=== PATIENT | male | born 1965 | race African-American/Black ===

== ENCOUNTER 2016-07-16 16:34 | Inpatient (IN) ==
[2016-07-16] MEDS ORDERED: SODIUM CHLORIDE 0.9% 1,000 ML IV STA (17:21)
--- NOTE | 2016-07-16 17:26 | Emergency Department Note ---
Arrival - Arrival Chief Complaint: Altered Mental Status Stated Complaint: altered mental status/high blood pressure ED Nursing Triage Note: PT FELL OUT AT HOME AND HAD HIGH BP PER . PT IS MOVING SLOW. STATES DID THIS ON 06/24/16 AND WAS JUST TOLD IT WAS HIGH BP PER PEREIRA. PT STATES ABOUT 1400 HE TOOK SOMETHING TO SLEEP AND DRANK TWO BEERS Mode of Arrival: Wheelchair Limitations: Altered Mental Status Source: Family Time Seen by Provider: 07/16/16 17:21 - History of Present Illness HPI Narrative: This 50-year-old black male was found by his son in the front yard by the car, easily aroused but sluggish. The patient per family members purportedly took 2 mg of Xanax with 48 ounces of beer and simply fell asleep in the yard. Because of these questionable circumstances, it should be noted the patient did have an absolute syncopal spell 2 weeks ago due to poorly controlled hypertension. At that time he was evaluated and treated for his blood pressure with subsequent stabilization. However, the states he has been drinking daily since then and has had persistently high blood pressure whenever evaluated at home. Patient is arousable and oriented denying chest pain, shortness of breath, nausea, or vomiting. Currently he is medically stable. Onset (ago): hour(s) (Patient presents 3 hours post incident) Allergies/Adverse Reactions: Allergies Allergy/AdvReac Type Severity Reaction Status Date / Time No Known Allergies Allergy Unverified 07/16/16 16:40 Review of System - Review of System 12 point system: reviewed and no additional remarkable complaints except as stated - Review of System Constitutional: Present: as per HPI Respiratory: Present: as per HPI Cardiovascular: Present: as per HPI Gastrointestinal: Present: as per HPI Neurological: Present: as per HPI Medical,Surgical,& Family Hx - Medical History Cardio: History of: Hypertension Neurology: History of: Cerebrovascular Accident (MILD) Respiratory: History of: Respiratory Problems (LUNG REPAIR) - Social History Smoking Status: Never smoker Frequency of Alcohol Use: Occasionally Type of Drug Use: None Exam Physical Examination: GENERAL: Well developed, well nourished black male in no acute distress. HEENT: Normocephalic. No trauma. Moist mucous membranes. EOMI. PERRLA. Bloodshot eyes ENT NML NECK: Supple. No adenopathy. CARDIAC: Regular. No murmurs. Heart rate 100 CHEST: Clear to auscultation. No respiratory distress. O2 sat 97% ABDOMEN: Soft. Nontender. Active bowel sounds. EXTREMITIES: No trauma. Normal ROM. No pedal edema. SKIN: No diaphoresis. No rash. NEURO: Alert. Oriented 3 although lethargic. Motor, sensory, vibratory intact. No focal deficits. Vital Signs: Vital Signs Temperature 97.6 F 07/16/16 18:28 Pulse Rate 90 07/16/16 18:28 Respiratory Rate 16 07/16/16 18:28 Blood Pressure 137/91 07/16/16 18:28 O2 Sat by Pulse Oximetry 97 07/16/16 16:37 Course - Reevaluation(s) Reevaluation #1: Discussed with patient and family the need for hospitalization given these recurrent syncopal episodes and finding of of recent new lacunar infarcts on CT. - Consultations Consultation #1: Discussed with hospitalist service who will admit for further evaluation treatment. Results - Labs CBC & BMP: 07/16/16 18:10 07/16/16 18:10 Labs: I reviewed the laboratory and noted its gross normalcy including cardiacs. On toxicology I did note elevated blood alcohol of 55. - Impressions EKG: Sinus rhythm at 94. Normal MT interval and QRS duration. Normal ST segments. Normal EKG. - Diagnostic Findings Procedure: Chest x-ray: image reviewed by me, report reviewed by me (Status post sternotomy otherwise no acute disease.), CT: image reviewed by me, report reviewed by me (Head: Subacute basilar and thalamic infarcts) Disposition Clinical Impression: Lacunar infarct subacute, Hypertension Case discussed with: patient's family Disposition: Still a Patient Condition: Guarded Time of Disposition: 19:53
--- NOTE | 2016-07-16 18:12 | XRay Report ---
Portable chest. Indication: Altered mental status. Comparison: February 26, 2009. The heart is probably upper limits of normal in size. Post median sternotomy. The film was obtained in expiration. The pulmonary vasculature is normal. No consolidation or pneumothorax. Impression: Expiratory chest. PROCEDURE INTERPRETED AT [facility] DEPARTMENT OF RADIOLOGY Final Report Signed by: Dr. Sondra Up
--- NOTE | 2016-07-16 18:14 | CT Report ---
CT of the head without contrast. Indication: Altered mental status. Comparison: October 01, 2012. This calcific plaque present within the intracranial internal carotid arteries. The ventricles are normal in size and configuration. There is no mass effect, midline shift, or area of hemorrhage. No cortical infarcts are seen at this time. Lacunar infarcts are noted within the left basal ganglia and thalamus. The calvarium is intact. The included paranasal sinuses and the mastoid air cells are clear. Impression: Lacunar infarcts are noted on the left, in the basal ganglia and the thalamus. These are more prominent than seen on the previous study. The CT exam was performed using one or more of the following dose reduction techniques: Automated exposure control, adjustment of the mA and/or kV according to patient size, or use of iterative reconstruction technique. PROCEDURE INTERPRETED AT [facility] DEPARTMENT OF RADIOLOGY Final Report Signed by: Dr. Sondra Up
[2016-07-16 18:18] LABS: Basophils # 0.1 10*3/uL (0.0-0.2); Basophils % 0.9 % (0.0-0.8); Eosinophils # 0.1 10*3/uL (0.0-0.87); Eosinophils % 2.4 % (0.00-10.9); Hematocrit 44.4 VOL% (42.0-52.0); Hemoglobin 14.9 GM/DL (14.0-18.0); Immature Granulocytes % 0.2 %; Immature Granulocytes Absolute 0.01 #; Lymphocytes # 2.3 10*3/uL (1.4-4.0); Lymphocytes % 40.3 % (21.2-54.2); Mean Corpuscular HGB Conc 33.6 GM/DL (32-36); Mean Corpuscular Hemoglobin 29 PG (27-34); Mean Corpuscular Volume 87.4 FL (87-102); Monocytes # 0.5 10*3/uL (0.11-0.8); Monocytes % 8.8 % (1.7-12.7); Neutrophils # 2.8 10*3/uL (1.4-7.4); Neutrophils % 47.4 % (38.7-73.9); Platelet Count 313 T/CUMM (130-400); Red Blood Count 5.08 MC/CUMM (3.8-5.5); Red Cell Distribution Width 14.5 % (9.3-17.3); White Blood Count 5.8 T/CUMM (4-12)
[2016-07-16 18:27] LABS: PT Patient Result 10.8 SECS; Partial Thromboplastin Time 26.4 SECS (0-40)
[2016-07-16 18:54] LABS: Albumin 3.8 G/DL (3.4-5.0); Bilirubin,Total 0.8 MG/DL (0.2-1.0); Osmolality,Calculated 278.3 MOS/KG (273-304); Potassium 3.6 MMOL/L (3.5-5.1); Total Protein 7.5 G/DL (6.4-8.3)
--- NOTE | 2016-07-16 19:37 | Hospitalist History & Physical ---
Assessment and Plan (1) Altered mental status Status: Acute Assessment and plan: Think this is a combination of his alcohol intake and his Xanax use. I think these were recreational use isn't deathly not an overdose. We will maintain the hospital observe his mental status on telemetry. He will get neuro checks Current Visit: Yes (2) Recreational drug use Status: Acute Assessment and plan: Patienttook xanax which I think sounds like recreational but he said for anxiety no suicidal ideations or thoughts Current Visit: Yes (3) Alcohol intoxication Status: Acute Assessment and plan: drinking alcohol the day during the day and was found a little bit with altered mental status and had a call level 55, admit hydrate give thiamine watch Current Visit: Yes History of Present Illness Chief complaint: altered mental status History of present illness: Mr. Denton is a 50 year old male last son the front yard by the car easily arousable but sluggish. The patient had drank what was said to be 48 ounces of beer and 2 Xanax bars which is 4 mg. He does admit to taking the medicine study due because he was anxious denies any suicidal ideations denies any chest pain or chest tightness did not black out at that time he's able to answer questions now but is a little bit groggy he denies any fever or chills. He seems to be getting less sleepy as time goes on Workup in the emergency room shows a chest x-ray that was reviewed by me and normal, CBC CMP unremarkable PTT normal serum alcohol level 55. No ekg available Patient was admitted to the hospital from the emergency department patient admission Allergies Allergy/AdvReac Type Severity Reaction Status Date / Time No Known Allergies Allergy Unverified 07/16/16 16:40 Medical,Surgical,& Family Hx - Medical History Cardio: History of: Hypertension Neurology: History of: Cerebrovascular Accident (MILD) Respiratory: History of: Respiratory Problems (LUNG REPAIR) - Surgical History Cardiac Surgeries: Patient Denies: Cardiac Catheterization Orthopedic Surgeries: Patient denies;: Orthopedic Surgery - Family History Family History: Denies;: Family Cancer, Family Diabetes, Family Heart Disease - Social History Smoking Status: Never smoker Frequency of Alcohol Use: Occasionally Type of Drug Use: None Review of systems: Constitutional: No fatigue or fever Eyes: No loss of vision or blurred vision Ears: No decreased hearing no ear pain Mouth no lip swelling or sore throat Cardiovascular no chest pain no claudication Respiratory no cough or shortness of breath GI no abdominal pain or bloating or bleeding : No urinary frequency or hesitancy musculoskeletal: No Arthralgias or back pain Psychiatric: Confusion memory loss Endocrine: No polydipsia or polyuria Hematology: No easy bleeding or bruising 12 point review of systems otherwise unremarkable Exam - Constitutional Vitals: Period Temp Pulse Resp BP Sys/Moya Pulse Ox Last 24 Hr 97.6 F-97.6 F 90-100 16-18 118-137/86-91 97 Exam: Constitutional: Patient in no apparent distress. Overweight easily arousable Eyes: Conjunctivae and lids are normal Pupils equal round react to light and accommodation irises are normal HEENT: External ears and nose without lesions masses or scarring Oropharynx without erythema exudates or thrush Neck is supple without masses no jugular venous distention Lungs: Lungs are clear to auscultation and resonant percussion Cardiovascular: Heart auscultation regular rate and rhythm without murmur rub or gallop PMI in the midclavicular line by palpation carotid arteries 2+ without bruits bowel abdomen: Bowel sounds normoactive no masses no rebound or regular tenderness no organomegaly Lymphatic: No anterior posterior cervical or axillary adenopathy Musculoskeletal: No active synovitis no malalignment of the joints good range of motion of upper and lower extremities Skin : normal to inspection and palpation Neurologic: Cranial nerves II through XII intact motor sensory intact DTRs 2+ negative cerebellar signs Psychiatric: Oriented to person place and time normal memory normal mood and affect normal judgment Results - Labs CBC & BMP: 07/16/16 18:10 07/16/16 18:10
--- NOTE | 2016-07-16 19:52 | EKG Report ---
Stationary ECG Study [facility] ER Test Date: 07/16/2016 7:51:24 PM Pat Name: TIFFANY GILBERT Department: Room: Gender: Manager Information: : 1965 Requested by: Robin Anderson Order Number: [id number] Reading MD: PRECIOUS GARCIA Intervals [place] Rate: 94 P: 62 [place]: 164 QRS: 43 QRSD: 96 T: 70 QT: 367 QTc: 419 Interpretive Statements SINUS RHYTHM Electronically Signed On 07-17-16 07:28:32 CDT by PRECIOUS GARCIA [email or web address]
[2016-07-16] MEDS: SODIUM CHLORIDE 0.45% 1,000 ML IV SCH (22:14)
[2016-07-17 00:29] LABS: Apearance,Urine CLEAR (Clear); Bilirubin,Urine Negative (Negative); Blood, Urine Negative (Negative); Glucose,Urine (UA) >=500 mg/dL (Negative); Ketones,Urine Negative (Negative); Nitrite,Urine Negative (Negative); Protein,Urine Negative; Urine Color Straw (Yellow); Urine Specific Gravity 1.001 (1.001-1.035); Urine Urobilinogen < 2.0 EU/DL (0.2-1.0)
[2016-07-17 00:47] LABS: Barbiturates Screen,Urine Negative (Negative); Benzodiazepines Screen,Urine Positive (Negative); Cannabinoid Screen,Urine Negative (Negative); Opiate Screen,Urine Negative (Negative); Phencyclidine Screen,Urine Negative (Negative)
[2016-07-17] MEDS ORDERED: LABETALOL 20 MG/4 ML SYRINGE IV PRN (06:33)
[2016-07-17 06:41] LABS: Basophils % 0.5 % (0.0-0.8); Eosinophils # 0.2 10*3/uL (0.0-0.87); Eosinophils % 3.3 % (0.00-10.9); Hematocrit 43.1 VOL% (42.0-52.0); Hemoglobin 14.3 GM/DL (14.0-18.0); Immature Granulocytes % 0.2 %; Immature Granulocytes Absolute 0.01 #; Lymphocytes # 1.7 10*3/uL (1.4-4.0); Lymphocytes % 28.9 % (21.2-54.2); Mean Corpuscular HGB Conc 33.2 GM/DL (32-36); Mean Corpuscular Hemoglobin 29 PG (27-34); Mean Corpuscular Volume 87.8 FL (87-102); Mean Platelet Volume 9.5 FL (9.6-12.0); Monocytes # 0.7 10*3/uL (0.11-0.8); Monocytes % 11.7 % (1.7-12.7); Neutrophils # 3.2 10*3/uL (1.4-7.4); Neutrophils % 55.4 % (38.7-73.9); Platelet Count 297 T/CUMM (130-400); Red Blood Count 4.91 MC/CUMM (3.8-5.5); Red Cell Distribution Width 14.6 % (9.3-17.3); White Blood Count 5.7 T/CUMM (4-12)
[2016-07-17 07:04] LABS: Calcium 8.6 MG/DL (8.5-10.1); Osmolality,Calculated 280.4 MOS/KG (273-304); Potassium 3.6 MMOL/L (3.5-5.1); Risk Ratio 2.97; Thyroid Stimulating Hormone 1.4 uIU/ml (0.358-3.74); VLDL CHOLESTEROL 18.2 MG/DL
[2016-07-17] MEDS: SODIUM CHLORIDE 0.45% 1,000 ML IV SCH (07:35)
[2016-07-17] MEDS ORDERED: MULTIVITAMIN (BEROCCA) TABLET PO SCH (09:00)
[2016-07-17] MEDS ORDERED: THIAMINE 100 MG TABLET PO SCH (09:00)
[2016-07-17] MEDS ORDERED: amLODIPine 5 MG TABLET PO SCH (10:30)
[2016-07-17] MEDS ORDERED: CARVEDILOL 12.5 MG TABLET PO SCH (10:30)
[2016-07-17 11:54] VITALS: BP 144/96
--- NOTE | 2016-07-17 12:17 | Discharge Summary ---
Hospital Course - Hospital Course Hospital Course: Mr. Denton is a 50 year old male found down in the front yard by the car. The patient had drank a 48 ounces beer and taken 2 Xanax bars which is 4 mg. He has refused help from [facility] and reports has attended AA in the past but is not interested in attending. His blood pressure was elevated on admission and through the night but improved on coreg and norvasc. Not sure of his compliance level. - Time spent with patient Time with patient DS: Less than 30 minutes (25 min) Discharge Plan - Discharge Data Disposition: Disch To Home/Self Care Condition at Discharge: Stable Discharge Diet: heart healthy Activity: resume usual activities as tolerated Hygiene: no restrictions Weight Bearing at Discharge: full weight bearing Driving: other (no driving while drinking alcohol or taking sedatives) - Discharge Medications New Multivitamin (Berocca) [Berocca] 1 tablet PO DAILY tablet Thiamine Tab [Vitamin B1 Tab] 100 mg PO DAILY tablet Carvedilol [Coreg] 12.5 mg PO BID #60 tablet Folic Acid Tab 1 mg PO DAILY #30 tablet Continue amLODIPine [Norvasc] 5 mg PO DAILY #30 tablet - Follow Up or Referral Follow Up: dr alfred [Other] - 1 Week (blood pressure ) - Forms/Instructions Additional Discharge Instructions: recommend AA Exam - Constitutional Vitals: Period Temp Pulse Resp BP Sys/Moya Pulse Ox Last 24 Hr 97.9 F-98.2 F 86-113 20-21 115-197/85-122 97-100 General appearance: normal weight, no acute distress - Respiratory Respiratory exam: Present: clear to auscultation bilaterally. Absent: rhonchi, wheezes - Cardiovascular Cardiovascular exam: Present: regular rate and rhythm. Absent: systolic murmur - GI/Abdominal GI/Abdominal exam: Present: normal bowel sounds, soft. Absent: tenderness Discharge Results Procedures and tests throughout hospitalization: Pending Orders 07/18/16 04:00 Comp Blood Count Auto Diff IN AM 07/19/16 04:00 Comp Blood Count Auto Diff IN AM Labs on day of discharge: Labs from last 24 hours 07/17/16 07/17/16 07/16/16 06:16 06:16 23:00 WBC 5.7 RBC 4.91 Hgb 14.3 Hct 43.1 MCV 87.8 MCH 29 MCHC 33.2 RDW 14.6 Plt Count 297 MPV 9.5 L Neut % (Auto) 55.4 Lymph % (Auto) 28.9 Simpson % (Auto) 11.7 Eos % (Auto) 3.3 Baso % (Auto) 0.5 Neut # (Auto) 3.2 Lymph # (Auto) 1.7 Simpson # (Auto) 0.7 Eos # (Auto) 0.2 Baso # (Auto) 0.0 Immature Gran % 0.2 Nucleated RBC % 0.0 Immature Gran # 0.01 Nucleated RBCs # 0.00 Sodium 140 Potassium 3.6 Chloride 104 Carbon Dioxide 26 Anion Gap 13.6 BUN 12 Creatinine 1.00 GFR Calculation 113 BUN/Creatinine Ratio 12.00 Glucose 138 H Calculated Osmolality 280.4 Calcium 8.6 Triglycerides 91 Cholesterol 196 LDL Cholesterol 129.0 VLDL Cholesterol 18.2 HDL Cholesterol 66 H Heart Disease Risk Ratio 2.97 TSH 3rd Generation 1.400 Urine Color Straw Urine Appearance Clear Urine pH 6.0 Ur Specific [place] 1.001 Urine Protein Negative Urine Glucose (UA) >=500 Urine Ketones Negative Urine Blood Negative Urine Nitrate Negative Urine Bilirubin Negative Urine Urobilinogen < 2.0 H Urine Leukocytes Negative Ur Culture Indicated? Not indicated Urine Opiates Screen Ur Barbiturates Screen Ur Phencyclidine Scrn U Amphetamine/Methamph U Benzodiazepines Scrn U Cocaine Metab Screen U Cannabinoids Screen 07/16/16 23:00 WBC RBC Hgb Hct MCV MCH MCHC RDW Plt Count MPV Neut % (Auto) Lymph % (Auto) Simpson % (Auto) Eos % (Auto) Baso % (Auto) Neut # (Auto) Lymph # (Auto) Simpson # (Auto) Eos # (Auto) Baso # (Auto) Immature Gran % Nucleated RBC % Immature Gran # Nucleated RBCs # Sodium Potassium Chloride Carbon Dioxide Anion Gap BUN Creatinine GFR Calculation BUN/Creatinine Ratio Glucose Calculated Osmolality Calcium Triglycerides Cholesterol LDL Cholesterol VLDL Cholesterol HDL Cholesterol Heart Disease Risk Ratio TSH 3rd Generation Urine Color Urine Appearance Urine pH Ur Specific [place] Urine Protein Urine Glucose (UA) Urine Ketones Urine Blood Urine Nitrate Urine Bilirubin Urine Urobilinogen Urine Leukocytes Ur Culture Indicated? Urine Opiates Screen Negative Ur Barbiturates Screen Negative Ur Phencyclidine Scrn Negative U Amphetamine/Methamph Negative U Benzodiazepines Scrn Positive H U Cocaine Metab Screen Negative U Cannabinoids Screen Negative DS: Provider Date of admission: 07/16/16 19:44 Primary care physician: . No PCP Attending physician on admission: Domenica Carpenter MD Consults: 07/17/16 10:23 Consult to Case Mgmt/Social Srvs [CONS] Routine Reason for Case Mgmt/Social Srvs: Rehab Discharging clinician: Domenica Carpenter MD
== END 2016-07-17 14:05 | disposition home or self-care (01) | DRG 918 ==
LOC: N.ED 16:34 → N.EDINP 19:44 → N.TELEN 20:26
PROVIDERS: ADMIT Internal Medicine; ATTEND Internal Medicine

== ENCOUNTER 2016-09-06 13:29 | Inpatient (IN) ==
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
[2016-09-06] MEDS ORDERED: DIPH/TET/ACEL PERT BOOSTER VACCINE 0.5 ML VIAL IM ONE ×2 (14:13→14:17)
[2016-09-06] MEDS ORDERED: ONDANSETRON 4 MG/2 ML VIAL IV STA (14:13)
[2016-09-06] MEDS ORDERED: LACTATED RINGERS 1,000 ML IV STA (14:13)
[2016-09-06] MEDS ORDERED: ceFAZolin 1,000 MG VIAL ONE (14:16)
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
[2016-09-06 14:30] LABS: INR 1.1; PT Patient Result 11.2 SECS
[2016-09-06 14:32] LABS: Apearance,Urine CLEAR (Clear); Bacteria,Urine Occasional /HPF (Few); Bilirubin,Urine Negative (Negative); Blood, Urine Moderate mg/dL (Negative); Glucose,Urine (UA) 50 mg/dL (Negative); Ketones,Urine Negative (Negative); Mucus,Urine Occasional /LPF (Occasional); Nitrite,Urine Negative (Negative); Protein,Urine Negative; RBC,Urine 2 /HPF (0-4); Urine Color Straw (Yellow); Urine Specific Gravity 1.003 (1.001-1.035); Urine Urobilinogen < 2.0 EU/DL (0.2-1.0); WBC,Urine 1 /HPF (0-6)
[2016-09-06 14:32] LABS: Basophils # 0.1 10*3/uL (0.0-0.2); Basophils % 0.4 % (0.0-0.8); Eosinophils % 0.3 % (0.00-10.9); Hematocrit 41.6 VOL% (42.0-52.0); Hemoglobin 14.7 GM/DL (14.0-18.0); Immature Granulocytes % 0.6 %; Immature Granulocytes Absolute 0.08 #; Lymphocytes # 0.9 10*3/uL (1.4-4.0); Lymphocytes % 6.5 % (21.2-54.2); Mean Corpuscular HGB Conc 35.3 GM/DL (32-36); Mean Corpuscular Hemoglobin 30 PG (27-34); Mean Corpuscular Volume 85.6 FL (87-102); Mean Platelet Volume 9.9 FL (9.6-12.0); Monocytes # 0.5 10*3/uL (0.11-0.8); Monocytes % 3.8 % (1.7-12.7); Neutrophils # 12.2 10*3/uL (1.4-7.4); Neutrophils % 88.4 % (38.7-73.9); Platelet Count 421 T/CUMM (130-400); Red Blood Count 4.86 MC/CUMM (3.8-5.5); Red Cell Distribution Width 14.9 % (9.3-17.3); White Blood Count 13.8 T/CUMM (4-12)
[2016-09-06 14:35] LABS: Albumin 3.6 G/DL (3.4-5.0); Bilirubin,Total 0.6 MG/DL (0.2-1.0); Calcium 8.6 MG/DL (8.5-10.1); Total Protein 6.8 G/DL (6.4-8.3)
[2016-09-06 14:46] LABS: Barbiturates Screen,Urine Negative (Negative); Benzodiazepines Screen,Urine Negative (Negative); Cannabinoid Screen,Urine Negative (Negative); Opiate Screen,Urine Negative (Negative); Phencyclidine Screen,Urine Negative (Negative)
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
[2016-09-06] MEDS ORDERED: LORazepam 2 MG/1 ML VIAL ONE (15:49)
[2016-09-06] MEDS ORDERED: LORazepam 2 MG/1 ML VIAL IV STA (15:57)
[2016-09-06] MEDS ORDERED: HALOPERIDOL 5 MG/ML AMP IV STA (15:57)
[2016-09-06] MEDS ORDERED: ONDANSETRON 4 MG/2 ML VIAL IV PRN (16:23)
[2016-09-06] MEDS ORDERED: MORPHINE 2 MG/1 ML SYRINGE IV PRN (16:23)
[2016-09-06] MEDS ORDERED: ALBUTEROL/IPRATROPIUM 3 ML NEB RESP TX PRN (16:23)
[2016-09-06] MEDS ORDERED: ACETAMINOPHEN 325 MG TABLET PO PRN (16:23)
[2016-09-06] MEDS: SODIUM CHLORIDE 0.9% 1,000 ML IV SCH (17:02)
--- NOTE | 2016-09-06 17:08 | ECHO Report ---
BertinArpan Exam Date: 09/06/2016 13:59 Referring Physician: Technologist: Cari Meza RDCS Age: 51 Ht (in): 66 Wt (lb): 170 Gender: M Exam Location: [facility] Echo use, Schizophrenia, Suicide attempt, Essential (primary) hypertension BP: 163 / 106 HR: Rhythm: Sinus Technical Quality: Fair IMPRESSIONS EF 65 %. Grade I/IV diastolic dysfunction (abnormal relaxation filling pattern), normal to mildly elevated filling pressures. Normal right ventricular size and systolic function. Normal right atrial size. The left atrium is mildly enlarged. Morphologically normal mitral valve. No mitral valve regurgitation. Trileaflet aortic valve. Trace aortic valve regurgitation. Mild tricuspid valve regurgitation. [id number] mmHg. No pleural effusion. Normal size aortic root and proximal ascending aorta. MEASUREMENTS (Male / Female) Normal Values 2D ECHO LV Diastolic Diameter PLAX 3.2 cm 4.2 - 5.9 / 3.9 - 5.3 cm LV Systolic Diameter PLAX 2.1 cm LV Fractional Shortening PLAX 33.9 % IVS Diastolic Thickness 1.4 cm 0.6 - 1.0 / 0.6 - 0.9 cm LVPW Diastolic Thickness 1.4 cm 0.6 - 1.0 / 0.6 - 0.9 cm RV Internal Dim ED PLAX 2.5 cm Aortic Root Diameter 3.8 cm LA Systolic Diameter LX 4.0 cm 3.0 - 4.0 / 2.7 - 3.8 cm DOPPLER TR Peak Velocity 265.0 cm/s TR Peak Gradient 28.1 mmHg FINDINGS Left Ventricle EF 65 %. Grade I/IV diastolic dysfunction (abnormal relaxation filling pattern), normal to mildly elevated filling pressures. Right Ventricle Normal right ventricular size and systolic function. Right Atrium Normal right atrial size. Left Atrium The left atrium is mildly enlarged. Mitral Valve Morphologically normal mitral valve. No mitral valve regurgitation. Aortic Valve Trileaflet aortic valve. Trace aortic valve regurgitation. Tricuspid Valve Morphologically normal tricuspid valve. Mild tricuspid valve regurgitation. [id number] mmHg. Pulmonic Valve Pulmonic valve not well visualized. Pericardium No pleural effusion. No pericardial effusion. Aorta Normal size aortic root and proximal ascending aorta. Brady Maria (Electronically Signed) Final Date: 06 Sep 2016 17:07
[2016-09-06] MEDS: LORazepam 2 MG/1 ML VIAL IV PRN (22:38)
[2016-09-07] MEDS: SODIUM CHLORIDE 0.9% 1,000 ML IV SCH (03:08)
[2016-09-07 05:49] LABS: Basophils % 0.6 % (0.0-0.8); Eosinophils # 0.1 10*3/uL (0.0-0.87); Hematocrit 32.2 VOL% (42.0-52.0); Immature Granulocytes % 0.3 %; Immature Granulocytes Absolute 0.02 #; Lymphocytes # 2.1 10*3/uL (1.4-4.0); Lymphocytes % 29.9 % (21.2-54.2); Mean Corpuscular HGB Conc 35.1 GM/DL (32-36); Mean Corpuscular Hemoglobin 30 PG (27-34); Mean Corpuscular Volume 86.6 FL (87-102); Mean Platelet Volume 9.8 FL (9.6-12.0); Monocytes # 0.9 10*3/uL (0.11-0.8); Monocytes % 13.4 % (1.7-12.7); Neutrophils # 3.7 10*3/uL (1.4-7.4); Neutrophils % 53.8 % (38.7-73.9); Red Cell Distribution Width 15.1 % (9.3-17.3)
[2016-09-07 05:52] LABS: White Blood Count 6.9 T/CUMM (4-12)
[2016-09-07 05:53] LABS: Hemoglobin 11.3 GM/DL (14.0-18.0); Platelet Count 327 T/CUMM (130-400); Red Blood Count 3.72 MC/CUMM (3.8-5.5)
[2016-09-07 06:17] LABS: Albumin 2.8 G/DL (3.4-5.0); Bilirubin,Total 1.2 MG/DL (0.2-1.0); Calcium 8.1 MG/DL (8.5-10.1); Magnesium 1.9 MG/DL (1.8-2.4); Osmolality,Calculated 275.5 MOS/KG (273-304); Potassium 4.1 MMOL/L (3.5-5.1); Total Protein 5.4 G/DL (6.4-8.3)
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
[2016-09-07] MEDS ORDERED: PANTOPRAZOLE 40 MG VIAL IV SCH (09:00)
[2016-09-07] MEDS ORDERED: amLODIPine 5 MG TABLET PO SCH (09:00)
[2016-09-07] MEDS ORDERED: CARVEDILOL 12.5 MG TABLET PO SCH ×2 (09:00→21:00)
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
[2016-09-07] MEDS: LORazepam 2 MG/1 ML VIAL IV PRN ×2 (12:26→15:40)
[2016-09-07] MEDS: HALOPERIDOL 5 MG/ML AMP IV PRN ×2 (12:28→18:29)
[2016-09-07 18:42] VITALS: BP 166/97
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
[2016-09-08] MEDS ORDERED: amLODIPine 5 MG TABLET PO SCH (09:00)
[2016-09-08] MEDS ORDERED: FOLIC ACID 1 MG TABLET PO SCH (09:00)
== END 2016-09-07 20:52 | DRG 605 ==
LOC: EDBD → EDUNIT# → N.ED 13:29 → N.EDINP 14:57 → N.ICU 15:37
PROVIDERS: ADMIT Surgery; ATTEND Surgery

== ENCOUNTER 2017-01-30 02:58 | Inpatient (IN) ==
[2017-01-30] MEDS ORDERED: MIDAZOLAM 10 MG/2 ML VIAL IV STA (04:37)
[2017-01-30 05:36] LABS: Basophils # 0.1 10*3/uL (0.0-0.2); Basophils % 0.4 % (0.0-0.8); Hematocrit 38.3 VOL% (42.0-52.0); Hemoglobin 13.6 GM/DL (14.0-18.0); Immature Granulocytes % 0.2 %; Immature Granulocytes Absolute 0.03 #; Lymphocytes # 0.9 10*3/uL (1.4-4.0); Lymphocytes % 7.3 % (21.2-54.2); Mean Corpuscular HGB Conc 35.5 GM/DL (32-36); Mean Corpuscular Hemoglobin 30 PG (27-34); Mean Platelet Volume 9.4 FL (9.6-12.0); Monocytes # 0.6 10*3/uL (0.11-0.8); Monocytes % 5.1 % (1.7-12.7); Neutrophils # 10.8 10*3/uL (1.4-7.4); Platelet Count 423 T/CUMM (130-400); Red Blood Count 4.56 MC/CUMM (3.8-5.5); Red Cell Distribution Width 17.2 % (9.3-17.3); White Blood Count 12.4 T/CUMM (4-12)
[2017-01-30] MEDS ORDERED: MIDAZOLAM 10 MG/2 ML VIAL ONE (05:41)
--- NOTE | 2017-01-30 06:06 | Order Completion Report ---
See report scanned to EMR
[2017-01-30 06:16] LABS: Barbiturates Screen,Urine Negative (Negative); Benzodiazepines Screen,Urine Negative (Negative); Cannabinoid Screen,Urine Negative (Negative); Opiate Screen,Urine Negative (Negative); Phencyclidine Screen,Urine Negative (Negative)
[2017-01-30 06:17] LABS: Albumin 3.4 G/DL (3.4-5.0); Bilirubin,Total 0.6 MG/DL (0.2-1.0); Calcium 8.1 MG/DL (8.5-10.1); Osmolality,Calculated 264.4 MOS/KG (273-304); Potassium 3.6 MMOL/L (3.5-5.1); Total Protein 7.1 G/DL (6.4-8.3)
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
[2017-01-30] MEDS ORDERED: ACETAMINOPHEN 325 MG TABLET PO PRN (07:15)
[2017-01-30] MEDS ORDERED: ONDANSETRON 4 MG/2 ML VIAL IV PRN (07:15)
[2017-01-30] MEDS ORDERED: DEXTROSE 5% LACTATED RINGERS 1,000 ML IV SCH (07:30)
[2017-01-30 09:27] LABS: CKMB % 0.3 %
[2017-01-30 09:34] LABS: Troponin I Only 0.143 NG/ML (0.00-0.045)
[2017-01-30] MEDS ORDERED: LORazepam 2 MG/1 ML VIAL IV PRN (10:18)
[2017-01-30] MEDS: PANTOPRAZOLE 40 MG TABLET PO SCH (10:30)
[2017-01-30] MEDS ORDERED: amLODIPine 5 MG TABLET PO SCH (10:30)
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
[2017-01-30] MEDS: CARVEDILOL 12.5 MG TABLET PO SCH ×2 (10:46→21:12)
[2017-01-30] MEDS: FOLIC ACID 1 MG TABLET PO SCH (10:46)
[2017-01-30] MEDS: THIAMINE 100 MG TABLET PO SCH (10:46)
[2017-01-30] MEDS: SODIUM CHLORIDE 0.9% 1,000 ML IV SCH (10:46)
[2017-01-30] MEDS: MULTIVITAMIN (CENTRUM) TABLET PO SCH (10:46)
[2017-01-30 11:18] LABS: Apearance,Urine CLEAR (Clear); Bacteria,Urine Occasional /HPF (Few); Bilirubin,Urine Negative (Negative); Blood, Urine Moderate mg/dL (Negative); Glucose,Urine (UA) Negative (Negative); Ketones,Urine 5 mg/dL (Negative); Mucus,Urine Occasional /LPF (Occasional); Nitrite,Urine Negative (Negative); Protein,Urine Negative; RBC,Urine 1 /HPF (0-4); Sperm,Urine Occasional /HPF (Negative); Urine Color Yellow (Yellow); Urine Specific Gravity 1.048 (1.001-1.035); Urine Urobilinogen < 2.0 EU/DL (0.2-1.0); WBC,Urine 1 /HPF (0-6)
[2017-01-30 12:53] LABS: CKMB % 0.4 %
[2017-01-30 12:55] LABS: Troponin I Only 0.145 NG/ML (0.00-0.045)
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
--- NOTE | 2017-01-30 15:22 | Order Completion Report ---
See report scanned to EMR
[2017-01-30] MEDS: amLODIPine 10 MG TABLET PO SCH (15:34)
[2017-01-30 15:41] LABS: CKMB % 0.4 %
[2017-01-30 15:42] LABS: Troponin I Only 0.143 NG/ML (0.00-0.045)
[2017-01-30] MEDS: hydrALAZINE 20 MG/1 ML VIAL IV PRN (16:24)
[2017-01-31] MEDS: SODIUM CHLORIDE 0.9% 1,000 ML IV SCH
[2017-01-31] MEDS: hydrALAZINE 20 MG/1 ML VIAL IV PRN (01:27)
[2017-01-31 05:42] LABS: Basophils # 0.1 10*3/uL (0.0-0.2); Basophils % 0.9 % (0.0-0.8); Eosinophils # 0.1 10*3/uL (0.0-0.87); Eosinophils % 1.4 % (0.00-10.9); Hematocrit 40.5 VOL% (42.0-52.0); Immature Granulocytes % 0.1 %; Immature Granulocytes Absolute 0.01 #; Lymphocytes # 1.8 10*3/uL (1.4-4.0); Lymphocytes % 26.5 % (21.2-54.2); Mean Corpuscular HGB Conc 34.6 GM/DL (32-36); Mean Corpuscular Hemoglobin 30 PG (27-34); Mean Corpuscular Volume 85.8 FL (87-102); Mean Platelet Volume 9.5 FL (9.6-12.0); Monocytes # 0.6 10*3/uL (0.11-0.8); Monocytes % 9.3 % (1.7-12.7); Neutrophils # 4.3 10*3/uL (1.4-7.4); Neutrophils % 61.8 % (38.7-73.9); Platelet Count 456 T/CUMM (130-400); Red Blood Count 4.72 MC/CUMM (3.8-5.5); White Blood Count 6.9 T/CUMM (4-12)
[2017-01-31 06:04] LABS: Folate 21.1 NG/ML (5.4-24.0)
[2017-01-31 06:12] LABS: Albumin 3.3 G/DL (3.4-5.0); Bilirubin,Total 2.1 MG/DL (0.2-1.0); Calcium 8.7 MG/DL (8.5-10.1); Osmolality,Calculated 266.2 MOS/KG (273-304); Potassium 4.2 MMOL/L (3.5-5.1)
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
[2017-01-31] MEDS: THIAMINE 100 MG TABLET PO SCH (08:41)
[2017-01-31] MEDS: MULTIVITAMIN (CENTRUM) TABLET PO SCH (08:41)
[2017-01-31] MEDS: CARVEDILOL 12.5 MG TABLET PO SCH (08:41)
[2017-01-31] MEDS: amLODIPine 10 MG TABLET PO SCH (08:41)
[2017-01-31] MEDS: FOLIC ACID 1 MG TABLET PO SCH (08:42)
[2017-01-31] MEDS: PANTOPRAZOLE 40 MG TABLET PO SCH (08:42)
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
[2017-01-31] MEDS ORDERED: LABETALOL 20 MG/4 ML SYRINGE IV ONE (10:27)
[2017-01-31] MEDS ORDERED: LISINOPRIL 20 MG TABLET PO SCH (10:30)
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
[2017-01-31 11:50] VITALS: BP 119/74
== END 2017-01-31 13:35 | disposition home or self-care (01) | DRG 206 ==
LOC: EDUNIT# → EDBD → N.ED 02:58 → N.EDINP 07:15 → N.TELES 08:16
PROVIDERS: ADMIT Surgery; ATTEND Surgery